=== PATIENT | female | born 1995 | race Caucasian/White ===

== ENCOUNTER 2016-05-21 12:35 | Outpatient (CLI) | payer MEDICAID ==
[~2016-05-21] VITALS: Ht 157.5 cm; Wt 99.2 kg
[~2016-05-21 12:35] MED LIST: ACET325T33 PO; CEPH-443 PO; NITR-58 PO; PRENAT PO
[2016-05-21 13:39] VITALS: Ht 157.5 cm; Wt 99.2 kg
[2016-05-21 13:40] VITALS: BP 110/62; PULSE 74
--- NOTE | 2016-05-21 13:55 | NSTRPT ---
NST Information Datetime Report Generated by CPN: 05/21/2016 13:55 Datetime: 05/21/2016 09:54 NST Information EGA: 36.1 Test Number: 6 Time on Monitor: 05/21/2016 10:18 Time off Monitor: 05/21/2016 11:12 NST Duration (Min): 54 Reason for NST: IUGR Test and Monitor Explained: Monitor Explained; Test Explained; Verbalized Understanding Pulse: 75 Resp: 19 SBP: 103 DBP: 56 Test Evaluation NST Interventions: Reposition Patient (Annotations: Data stored by [facility] on behalf of user) Patient States Movement: Present Contraction Frequency: x1, denies FHR Baseline : 145 Variability: Moderate 6-25bpm Accelerations: 15X15 Decelerations: Variable FHR Category: Category I NST Results: Reactive Comments: One moderate variable decel during NST. PT TO U/S. HOLGER 9.0, cephalic, S/D Ratio 2.33. Strip reviewed by Dr. Noonan perinatologist. Recomendation is pt to go to OB-TRG fo r extended monitoring. Report given to Dr. Milligan, agrees with recomendation. Explained to pt plan o f care. F/U nst appointment given. Kick Count instructions reivewed. Pt states understanding. 1215-Pt to Ob-TRG as ordered. Electronically Signed By E-Signature: with User ID: [id number]
--- NOTE | 2016-05-21 14:01 | RADRPT ---
PROCEDURE: OB ultrasound for biophysical profile CLINICAL INDICATION: Decelerations TECHNIQUE: Multiple sonographic images of the pelvis were obtained. Transabdominal view of the gr avid uterus are available for review. The images were reviewed on a PACS workstation. COMPARISON: OB ultrasound 05/19/2016 FINDINGS: breathing movement = 2/2 tone = 2/2 motion = 2/2 HOLGER = 2/2 HOLGER = 8.8 cm, consistent with borderline oligohydramnios. Single live intrauterine with cardiac activity. heart rate equals 163 beats p er minute. Presentation is cephalic. The placenta is right lateral. IMPRESSION: 1. Single viable intrauterine gestation. 2. Biophysical profile = 8/8. 3. HOLGER = 8.8 cm. RPTAT: KK .Jewel Prieto MD, Date Time Electronically viewed and signed by .Jewel Prieto MD, MD on 05/21/2016 14:00 .B/
--- NOTE | 2016-05-21 18:10 | CONS ---
Date/Time of Note Date/Time of Note DATE: 05/21/16 TIME: 18:05 Consultation Date/Type/Reason Admit Date/Time May 21, 2016 OB triage consult Reason for Consultation This patient is a 21 years old 3 para 1 1 with EDC of June 17, 2016 which makes her 36 weeks and 1 day. \\She came to the triage area as a referral from [facility] clinic due to heart rate deceleration in that clinic. she was seen for further evaluation On physical examination she appear to be a well-developed well-nourished lady near term.her vital signs were normal with blood pressure 110/62 pulse rate 74 respiration 18 temperature 98.1 Her ear nose throat neck chest and heart all appeared normal . On examination abdomen she was having very rare contraction heart tone was normal, fetus was in vertex presentation without much of a contract Extremity ;no edema no varicose vein . knee-jerk reflex were normal Pelvic exam was not performed Her extended monitoring for over 2 hours did not reveal any true decelerations heart tone had fairly good variability no true decelerations Constitutional: No chills, No diaphoresis, No disoriented, No febrile, No improved, No no complaints, No other, No poor po, No requiring IVF, No requiring O2 Eyes: No discharge, No no complaints, No other, No pain, No redness, No visual change ENT: No bleeding, No congestion, No discharge, No dysphagia, No no complaints, No other, No pain, No sore throat Respiratory: No cough, No no complaints, No other, No pain, No pleuritic pain, No shortness of breath, No sputum, No wheezing Cardiovascular: No chest pain, No edema, No lightheadedness, No no complaints, No orthopenea, No other, No palpitations, No paroxysmal nocturnal dyspnea Gastrointestinal: No blood, No constipation, No decreased appetite, No diarrhea , No flatus, No nausea, No no complaints, No other, No pain, No passing stool, No vomiting Genitourinary: other (Very rare contractions), No bleeding, No discharge, No dysuria, No flank pain, No hematuria, No no complaints Musculoskeletal: No back pain, No bone/joint pain, No neck pain, No no complaints, No other, No restricted range of motion, No swelling Skin: No bruising, No erythema, No laceration, No no complaints, No other, No pruritis, No rash, No skin lesions Neurologic: No confusion, No dizziness, No focal-weakness, No headache, No no complaints, No other, No seizure, No syncope Endocrine: No dry skin, No no complaints, No other, No polydypsia, No polyuria , No temp intolerance Lymphatic: No adenopathy, No lymphadema, No no complaints, No other, No tender nodes Additional Comments With these finding patient was discharged home to continue monitoring of movement by doing the kick count and to attend the NST clinic 2 days later for follow Social History Smoking Status: Never smoker Exam/Review of Systems Vital Signs Vitals Vital Signs Date Time Temp Pulse Resp B/P Pulse Ox O2 Delivery O2 Flow Rate FiO2 05/21/16 13:40 98.1 74 110/62 ROSALVA BROOKS MD May 21, 2016 18:10
== END 2016-05-21 16:40 | disposition home or self-care (01) ==
LOC: OBT 12:35 → L-D 12:36 → OBT 16:40
PROVIDERS: ATTEND Obstetrics & Gynecology
DX: O76 Abnormality in fetal heart rate and rhythm complicating labor and delivery (principal); Z3A.36 36 weeks gestation of pregnancy
CPT/HCPCS: 76818; Z7500; G0463

== ENCOUNTER 2016-06-08 03:13 | Inpatient (IN) | payer MEDICAID ==
[~2016-06-08] VITALS: Ht 157.5 cm; Wt 101.4 kg
[~2016-06-08 03:13] MED LIST changes: -ACET325T33 PO; -CEPH-443 PO; -NITR-58 PO
[2016-06-08 03:19] VITALS: Ht 157.5 cm; Wt 101.4 kg
[2016-06-08 03:20] VITALS: BP 131/74; PULSE 85; RESP 18
[2016-06-08] MEDS ORDERED: LACTATED RINGER'S 1,000 ML IV SCH ×2 (04:11→04:47)
[2016-06-08] MEDS ORDERED: MISOPROSTOL 200 MCG TAB PR PRN (05:00)
[2016-06-08] MEDS ORDERED: CARBOPROST 250 MCG INJ IM PRN (05:00)
[2016-06-08] MEDS ORDERED: IBUPROFEN 600 MG TAB PO PRN (05:00)
[2016-06-08] MEDS ORDERED: LIDOCAINE 1% (MPF) 30 ML INJ INJ PRN (05:00)
[2016-06-08] MEDS ORDERED: BUTORPHANOL 2 MG INJ IV PRN (05:00)
[2016-06-08] MEDS ORDERED: AMPICILLIN 2 GM/NS (PMX) 100 ML IV ONE (05:00)
[2016-06-08] MEDS ORDERED: METHYLERGONOVINE 0.2 MG INJ IM PRN (05:00)
[2016-06-08] MEDS ORDERED: OXYTOCIN 30 UNITS/LR 500 ML IV SCH (05:00)
[2016-06-08] MEDS ORDERED: OXYTOCIN 30 UNITS/LR 500 ML IV PRN (05:00)
[2016-06-08 05:05] LABS: ADD SCAN DIFF NO
[2016-06-08 05:20] LABS: INR 0.94; PROTIME 12.6 Sec (12.2-14.2)
[2016-06-08 05:21] LABS: PARTIAL THROMBOPLASTIN TIME 24.3 Sec (25.0-35.0)
[2016-06-08 05:22] LABS: ADD UMIC YES; ALBUMIN 3.6 g/dl (3.3-4.9); ALBUMIN/GLOBULIN RATIO 1.05; BILIRUBIN,INDIRECT 0.1 mg/dl (0-1.1); BILIRUBIN,TOTAL 0.1 mg/dl (0.2-1.3); CALCIUM 9.3 mg/dl (8.4-10.2); CREATININE 0.49 mg/dl (0.44-1.00); POTASSIUM 3.9 mmol/L (3.5-5.1); URIC ACID 4.6 mg/dl (3.1-7.9); URINE BILIRUBIN (Dip) NEGATIVE (NEGATIVE); URINE BLOOD (Dip) 1+ (NEGATIVE); URINE COLOR LT. YELLOW (YELLOW); URINE GLUCOSE (Dip) NEGATIVE (NEGATIVE); URINE KETONES (Dip) NEGATIVE (NEGATIVE); URINE LEUKOCYTE ESTERASE (Dip) NEGATIVE (NEGATIVE); URINE NITRITE (Dip) NEGATIVE (NEGATIVE); URINE TOTAL PROTEIN (Dip) NEGATIVE (NEGATIVE); URINE UROBILINOGEN (Dip) 0.2 E.U./dL (0.1-1.0)
[2016-06-08 05:23] LABS: BASOPHILS % 0.3 % (0.0-2.0); EOSINOPHILS # 0.6 10^3/ul (0.0-0.5); EOSINOPHILS % 5.8 % (0.0-7.0); HEMATOCRIT 34.3 % (37.0-47.0); HEMOGLOBIN 11.1 g/dl (12.0-16.0); LYMPHOCYTES # 2.1 10^3/ul (0.8-2.9); LYMPHOCYTES % 19.3 % (18.0-55.0); MEAN CORPUSCULAR HEMOGLOBIN 27.8 pg (29.0-33.0); MEAN CORPUSCULAR HGB CONC 32.4 g/dl (32.0-37.0); MEAN CORPUSCULAR VOLUME 85.8 fl (72.0-104.0); MEAN PLATELET VOLUME 10.4 fl (7.4-10.4); MONOCYTE # 0.8 10^3/ul (0.3-0.9); MONOCYTES % 7.3 % (0.0-13.0); NEUTROPHIL # 7.1 10^3/ul (1.6-7.5); NEUTROPHILS % 66.5 % (30.0-74.0); PLATELET COUNT 151 10^3/UL (140-415); RED CELL DISTRIBUTION WIDTH 13.5 % (11.5-14.5); WHITE BLOOD COUNT 10.6 10^3/ul (4.8-10.8)
--- NOTE | 2016-06-08 07:48 | RADRPT ---
PROCEDURE: US OB. CLINICAL INDICATION: Small for gestational age TECHNIQUE: Multiple sonographic images of the pelvis were obtained. Transabdominal imaging only w as performed. The images were reviewed on a PACS workstation. COMPARISON: Early OB ultrasound dated 12/07/2015 FINDINGS: There is a single live intrauterine gestation. Cardiac activity is present with 115 beats per minut e. position is cephalic. Measurements were made in order to determine age. The results are as follows: BPD = 8.23 cm HC = 29.66 cm AC = 30.03 cm FL = 6.67 cm. Estimated gestational age of approximately 33 weeks 4 days. The estimated date of delivery is 07/23/2016. The EFW = 2297 g, less than third %ile. The placenta is fundal. There is no evidence for an abruption or placenta previa. IMPRESSION: 1. Single live intrauterine gestation of approximately 33 weeks 4 days, by ultrasound criteria. 2. The estimated date of delivery is 07/23/2016. The original estimated date of delivery based on [facility] ultrasound from 12/07/2015 was 06/19/2016. 3. The estimated weight is 2297 g, less than 3rd %ile. RPTAT: HH .Dara Owens MD, Date Time Electronically viewed and signed by .Dara Owens MD, MD on 06/08/2016 07:48 .G/
--- NOTE | 2016-06-08 07:49 | RADRPT ---
PROCEDURE: OB ultrasound for biophysical profile CLINICAL INDICATION: Small for gestational age TECHNIQUE: Multiple sonographic images of the pelvis were obtained. Transabdominal views of the g ravid uterus are available for review. The images were reviewed on a PACS workstation. COMPARISON: None FINDINGS: breathing movement = 2/2 tone = 2/2 motion = 2/2 HOLGER = 2/2 HOLGER = 5.4 cm Single live intrauterine with cardiac activity of 122 bpm. position is cephal ic. The placenta is fundal. IMPRESSION: 1. Single live intrauterine gestation. 2. Biophysical profile = 8. 3. Oligohydramnios. HOLGER = 5.4 cm. RPTAT: HH .Dara Owens MD, Date Time Electronically viewed and signed by .Dara Owens MD, on 06/08/2016 07:48 .G/
[2016-06-08 07:59] LABS: BACTERIA,URINE FEW; URINE RBCS 0-2 /HPF (0)
[2016-06-08] MEDS ORDERED: AMPICILLIN 1 GM/NS (PMX) 50 ML IV SCH (09:00)
[2016-06-08] MEDS: OXYTOCIN 30 UNITS/LR 500 ML IV SCH ×4 (09:36→15:42)
[2016-06-08 09:49] LABS: BENZODIAZEPINES Negative (NEGATIVE)
[2016-06-08 09:52] LABS: BARBITURATES Negative (NEGATIVE); CANNABINOIDS Negative (NEGATIVE); COCAINE Negative (NEGATIVE); OPIATES Negative (NEGATIVE)
--- NOTE | 2016-06-08 10:07 | LDN ---
Date/Time of Note Date/Time of Note DATE: 06/08/16 TIME: 10:02 Delivery Summary Normal spontaneous vaginal delivery of a baby girl from OA position shoulders delivered without difficulty rest of the baby's body followed placenta continues expulsion inspected complete blood loss 250 cc vaginal examination no perineal or vaginal laceration Weeks of Gestation 38 weeks 5 days Placenta Delivered: Spontaneously Meconium: none Episiotomy: No Laceration repair: None Anesthesia type: None Estimated blood loss: 200 Sponge & Needle done & correct: Yes All needle counts correct: Yes Any foreign bodies felt in the: No Problems: Infant Delivery Information Sex Infant Sex: female Apgars 1 Minute: 8 5 Minute: 9 Suctioning Nose & mouth suctioned at abhishek: Yes Delee suction performed: No Umbilical Cord Umbilical cord with: 3 Vessels Cord presentations: nuchal cord Cord Blood was obtained: Yes LIAN BELL MD Jun 08, 2016 10:07
--- NOTE | 2016-06-08 10:13 | HP ---
Date/Time of Note Date/Time of Note DATE: 06/08/16 TIME: 10:07 OB - History Hx of Present Free Text/Dictation 21 years old 3 para 1 AB 1 admitted to [facility] at 38 weeks and 5 days in active labor examination on admission cervical dilatation 9 cm premature rupture member vertex at 0 station category 1. heart rate contraction every 2-4 minutes Chief Complaint: Labor pain Estimated Due Date: June 17, 2016 : 3 Para: 2 Therapeutic : 1 Care: Good Care Ultrasounds: Normal mid trimester US Obstetrical Complications: None Medical Complications: None Past Family/Social History * Past Medical, Surgical, Family and Obstetric Histories reviewed from chart. Rubella: immune RPR/VDRL: Negative GBS Status: Negative HBsAG: Negative OB Admission Exam Vital Signs Vital Signs Vital Signs Date Time Temp Pulse Resp B/P Pulse Ox O2 Delivery O2 Flow Rate FiO2 06/08/16 03:20 98.4 85 18 131/74 Room Air Physical Exam HEENT: WNL Heart: Rhythm Normal Lungs: Clear, Equal Abdomen: WNL Extremities: Normal Reflexes: Normal Cervical Dilatation: 9cm Effacement: 100% Station: 0 Membranes: Ruptured Amniotic Fluid: Clear Heart Rate: 130's Accelerations: Accelerations Present Decelerations: No Decelerations Varibility: Moderate Contractions on Admission: < 5 Minutes Apart Intensity: Firm Last 72 hours Lab Results CBC & BMP 06/08/16 04:25 Liver Function Test 06/08/16 04:25 Alanine Aminotransferase (ALT/SGPT) 21 Albumin 3.6 Alkaline Phosphatase 151 H Aspartate Amino Transf (AST/SGOT) 20 Direct Bilirubin 0.00 Total Protein 7.0 LIAN BELL MD Jun 08, 2016 10:13
[2016-06-08] MEDS ORDERED: LANOLIN 7 GM TUBE TOP PRN (12:00)
[2016-06-08] MEDS ORDERED: BENZOCAINE 20% 56 ML SPRAY TOP PRN (12:00)
[2016-06-08] MEDS ORDERED: DIBUCAINE 1% 30 GM OINT PR PRN (12:00)
[2016-06-08] MEDS ORDERED: ACETAMINOPHEN 325 MG TAB PO PRN (12:00)
[2016-06-08] MEDS ORDERED: ACETAMINOPHEN/CODEINE #3 TAB PO PRN ×2 (12:00)
[2016-06-08] MEDS ORDERED: WITCH HAZEL/GLYCERIN PAD PR PRN (12:00)
[2016-06-08] MEDS ORDERED: ONDANSETRON 4 MG INJ IV PRN (12:00)
[2016-06-08] MEDS ORDERED: OXYCODONE/ASPIRIN (4.88/325) TAB PO PRN ×2 (12:00)
[2016-06-08 12:05] VITALS: BP 110/55; PULSE 61; RESP 18
[2016-06-08] MEDS: IBUPROFEN 600 MG TAB PO SCH ×3 (12:53→23:39)
[2016-06-08 13:20] VITALS: BP 114/61; PULSE 54; RESP 18
[2016-06-08] MEDS ORDERED: LACTATED RINGER'S 1,000 ML IV PRN (14:00)
[2016-06-08 16:00] VITALS: BP 108/57; PULSE 70; RESP 19
[2016-06-08 19:35] VITALS: BP 90/51; PULSE 73; RESP 20
[2016-06-08] MEDS: SENNA/DOCUSATE NA (8.6MG/50MG) TAB PO SCH (20:27)
[2016-06-09 04:05] VITALS: BP 98/56; PULSE 68; RESP 18
[2016-06-09] MEDS: IBUPROFEN 600 MG TAB PO SCH ×4 (05:28→23:35)
[2016-06-09 08:00] VITALS: BP 103/70; PULSE 70; RESP 18
[2016-06-09 08:29] LABS: ADD SCAN DIFF NO
[2016-06-09 08:39] LABS: BASOPHILS % 0.3 % (0.0-2.0); EOSINOPHILS # 0.2 10^3/ul (0.0-0.5); EOSINOPHILS % 1.9 % (0.0-7.0); HEMATOCRIT 31.4 % (37.0-47.0); HEMOGLOBIN 10.2 g/dl (12.0-16.0); LYMPHOCYTES # 2.2 10^3/ul (0.8-2.9); LYMPHOCYTES % 20.2 % (18.0-55.0); MEAN CORPUSCULAR HEMOGLOBIN 28.2 pg (29.0-33.0); MEAN CORPUSCULAR HGB CONC 32.5 g/dl (32.0-37.0); MEAN CORPUSCULAR VOLUME 86.7 fl (72.0-104.0); MEAN PLATELET VOLUME 10.5 fl (7.4-10.4); MONOCYTE # 0.5 10^3/ul (0.3-0.9); MONOCYTES % 4.9 % (0.0-13.0); NEUTROPHIL # 7.9 10^3/ul (1.6-7.5); NEUTROPHILS % 72.2 % (30.0-74.0); PLATELET COUNT 136 10^3/UL (140-415); RED BLOOD COUNT 3.62 10^6/ul (4.20-5.40); RED CELL DISTRIBUTION WIDTH 13.6 % (11.5-14.5); WHITE BLOOD COUNT 10.9 10^3/ul (4.8-10.8)
[2016-06-09] MEDS: SENNA/DOCUSATE NA (8.6MG/50MG) TAB PO SCH ×2 (09:08→20:55)
--- NOTE | 2016-06-09 09:33 | PN ---
Date/Time of Note Date/Time of Note DATE: 06/09/16 TIME: 09:32 OB Subjective Subjective Subjective Post normal vaginal delivery day 1 Afebrile vital signs stable abdomen soft uterus firm lochia normal extremity normal plan of a.m. discharge discussed with the patient Current Medications Medications (Trade) Dose Ordered Sig/Jose L Route PRN Reason Start Time Stop Time Status Last Admin Dose Admin Lactated Ringer's 1,000 ml @ 125 mls/hr Q8H IV 06/08/16 04:11 06/08/16 11:50 DC 06/08/16 04:39 Lactated Ringer's 1,000 ml @ 125 mls/hr Q8H IV 06/08/16 04:47 06/08/16 11:50 DC 06/08/16 06:19 Ampicillin 100 ml @ 100 mls/hr ONCE ONCE IV 06/08/16 05:00 06/08/16 05:59 DC 06/08/16 06:18 Ampicillin (Ampicillin 1 Gm/ NS (Pmx)) 50 ml @ 100 mls/hr Q4H IV 06/08/16 09:00 06/08/16 11:50 DC 06/08/16 10:00 Butorphanol Tartrate (Stadol) 2 mg Q2H PRN IV PAIN 06/08/16 05:00 Lidocaine 30 ml 30 ml ONCE PRN INJ EPISIOTOMY/TEARING 06/08/16 05:00 06/08/16 11:51 DC Oxytocin/Lactated Ringer's 500 ml @ 125 mls/hr ONCE -MAY REPEAT X1 IV 06/08/16 05:00 06/08/16 11:51 DC 06/08/16 10:06 Oxytocin/Lactated Ringer's 500 ml @ 125 mls/hr ONCE IV 06/08/16 05:00 06/08/16 11:51 DC Ibuprofen 600 mg 600 mg ONCE PRN PO Mild Pain (Pain Score 1-3) 06/08/16 05:00 06/08/16 14:00 DC Lactated Ringer's 1,000 ml @ 2,000 mls/hr Q30M PRN IV PRE-EPIDURAL BOLUS 06/08/16 14:00 Oxytocin/Lactated Ringer's 500 ml @ 0 mls/hr ONCE PRN IV For Hemorrhage Management 06/08/16 05:00 Methylergonovine Maleate (Methergine) 0.2 mg ONCE PRN IM VAGINAL BLEEDING 06/08/16 05:00 Carboprost Tromethamine (Hemabate) 250 mcg ONCE PRN IM VAGINAL BLEEDING 06/08/16 05:00 Misoprostol 1000 mcg 1,000 mcg ONCE PRN TX VAGINAL BLEEDING 06/08/16 05:00 Oxytocin/Lactated Ringer's 500 ml @ 125 mls/hr Q4H IV 06/08/16 11:42 06/08/16 19:41 DC 06/08/16 12:58 Ibuprofen (Motrin) 600 mg Q6 PO 06/08/16 12:00 06/09/16 05:28 Acetaminophen (Tylenol Tab) 650 mg Q4H PRN PO PAIN LEVEL 1-5 06/08/16 12:00 Acetaminophen/ Codeine Phosphate (Tylenol No.3) 1 tab Q4H PRN PO PAIN LEVEL 1-5 06/08/16 12:00 Acetaminophen/ Codeine Phosphate (Tylenol No.3) 2 tab Q4H PRN PO PAIN LEVEL 6-10 06/08/16 12:00 Oxycodone/Aspirin (Percodan) 1 tab Q3H PRN PO PAIN LEVEL 1-5 06/08/16 12:00 Oxycodone/Aspirin (Percodan) 2 tab Q3H PRN PO PAIN LEVEL 6-10 06/08/16 12:00 Ondansetron HCl (Zofran Inj) 4 mg Q6H PRN IV NAUSEA AND/OR VOMITING 06/08/16 12:00 Senna/Docusate Sodium (Senokot-S) 1 tab BID PO 06/08/16 21:00 06/09/16 09:08 Witch Leida/ Glycerin (Tucks Pads) 1 pad BEDSIDE MEDICATION PRN TX HEMORRHOID/EPISIOTMY PAIN 06/08/16 12:00 Benzocaine (Dermoplast [place]) 1 spray BEDSIDE MEDICATION PRN TOP HEMORRHOID/EPISIOTMY PAIN 06/08/16 12:00 06/08/16 12:53 Dibucaine (Nupercainal) 1 applic BEDSIDE MEDICATION PRN TX HEMORRHOID/EPISIOTMY PAIN 06/08/16 12:00 Lanolin ([id number]) 1 applic BEDSIDE MEDICATION PRN TOP BEDSIDE FOR JESSIE TO NIPPLES 06/08/16 12:00 06/08/16 12:53 Measles/Mumps/ Rubella Vaccine Live (Mmr Ii Vaccine) 0.5 ml ONCE ONCE SC* 06/10/16 09:00 06/10/16 09:01 LIAN BELL MD Jun 09, 2016 09:33
[2016-06-09 16:30] VITALS: BP 100/58; PULSE 65; RESP 18
[2016-06-09 19:40] VITALS: BP 113/76; RESP 20
[2016-06-10 04:05] VITALS: BP 111/69; PULSE 63; RESP 18
[2016-06-10] MEDS: IBUPROFEN 600 MG TAB PO SCH ×2 (05:19→11:36)
[2016-06-10 08:35] VITALS: BP 104/66; PULSE 78; RESP 18
[2016-06-10] MEDS: SENNA/DOCUSATE NA (8.6MG/50MG) TAB PO SCH (08:37)
[2016-06-10] MEDS ORDERED: MEASLES,MUMPS,RUBELLA VACCINE INJ SC* ONE (09:00)
--- NOTE | 2016-06-10 12:46 | DS ---
Date/Time of Note Date/Time of Note DATE: 06/10/16 TIME: 12:45 Discharge Summary Admission/Discharge Info Admit Date/Time Jun 08, 2016 at 04:45 Discharge Date/Time June 10, 2016 at 1300 Final Diagnosis Post normal vaginal delivery day 2 Patient Condition: Good Procedures Normal spontaneous vaginal delivery Hx of Present Illness Term in labor Hospital Course Satisfactory uneventful Home Meds Reported Medications Multivit/Min/Fol Ac/Iron/Pren* ( S*) Unknown Strength Tab, PO DAILY, TAB 12/05/15 Follow-up Plan Appointment clinic in 2 weeks for follow-up LIAN BELL MD Jun 10, 2016 12:46
== END 2016-06-10 15:30 | disposition home or self-care (01) | DRG 775 ==
LOC: OBT 03:13 → L-D 03:14 → OBT 04:45 → L-D 04:45 → PP1 11:37
PROVIDERS: ADMIT Obstetrics & Gynecology; ATTEND Obstetrics & Gynecology
PROC: 10E0XZZ Delivery of Products of Conception, External Approach (ICD-10-PCS; principal; 2016-06-08)
DX: O69.81X0 Labor and delivery complicated by cord around neck, without compression, not applicable or unspecified (principal); Z37.0 Single live birth; Z3A.38 38 weeks gestation of pregnancy
CPT/HCPCS: 76815; 76818; 80053; 80307; 81001; 81003; 84560; 85025; 85610; 85730; 86592; 86900; 86901; 87340; 99464; G0463; J0290; J2590; J7120